=== PATIENT | male | born 1960 | race Caucasian/White ===

== ENCOUNTER 2017-10-20 10:56 | Day surgery (SDC) | payer OTHER ==
[~2017-10-20] VITALS: Ht 177.8 cm; Wt 98.2 kg
--- NOTE | ~2017-10-20 | DS ---
PATIENT:RADHA PICHARDO :56 MEDICAL RECORD: [id number] DISCHARGE SUMMARY ADMISSION DATE: 10/20/17 DISCHARGE DATE: 10/21/17 PRINCIPAL DIAGNOSES: Ruptured acute appendicitis with localized peritonitis and abscess. SECONDARY DIAGNOSIS: Urinary retention. PROCEDURE: Laparoscopic appendectomy. HOSPITAL COURSE: The patient was admitted through the Emergency Room. He underwent the above operative procedure. Postoperatively, he did well except for some urinary retention, which resolved with Flomax. He is being dismissed home on Levaquin, Flagyl, [place] as well as Colace. I have told him that due to the possibility of tendon rupture, he should not exercise while taking the Levaquin. TRANSINT:[id number] Voice Confirmation ID: [id number] DOCUMENT ID: [id number] JORDYN IZQUIERDO MD at 1227 CC: [id number] DICTATION DATE: 10/21/171808 REGIONAL MEDICAL DIRECTOR: 10/22/17 1230 [facility] 10/21/17 [id number] [place] [address]
--- NOTE | ~2017-10-20 | OP ---
PATIENT NAME: RADHA PICHARDO MEDICAL RECORD: [id number] :56 LOCATION:. ADMISSION DATE: SURGEON: JORDYN IZQUIERDO MD DATE OF OPERATION: 10/20/2017 PREOPERATIVE DIAGNOSIS: Acute appendicitis with localized peritonitis. POSTOPERATIVE DIAGNOSIS: Acute appendicitis with localized peritonitis with rupture and abscess. PROCEDURE: Laparoscopic appendectomy. SURGEON: Jordyn Izquierdo MD BUSINESS PROCESS ANALYST: None. BLOOD LOSS: Minimal. ANESTHESIA: General. COMPLICATIONS: None. The risks, possible complications, and alternatives to procedure were explained to the patient. He elects to proceed. The discussion specifically included, but was not limited to, bleeding requiring emergency reoperation, infection, intestinal injury and the possibility that the appendix would not be acutely inflamed. OPERATIVE COURSE: The patient was conveyed to the operating room electively on 10/20/2017. General anesthesia was induced by the anesthesia staff. The abdomen was sterilely prepped and draped. A small skin gaby was accomplished in the left upper quadrant. A Veress needle was inserted through the skin gaby into the peritoneal cavity. CO2 insufflation was begun. Once a sufficient pneumoperitoneum had been achieved, a 5-mm trocar was inserted through an incision in the left lower quadrant. Under direct internal vision, utilizing a television camera, a 12-mm trocar was inserted through an incision at the umbilicus. Another 5-mm trocar was inserted through an incision in the right groin. During insertion of the Veress needle and all trocars, there appeared to have been no injury to the bowels, any intraperitoneal or retroperitoneal structures. Abdominal survey was undertaken. The appendix was acutely inflamed. There was pus around the appendix. I aspirated the pus. I began to bluntly dissect out the appendix. I incised along the right white line of Toldt to get more mobility to the cecum. I was able to mobilize the appendix, which was ruptured. A window was created in the mesoappendix. I stapled across the tip of the cecum with an Endo-KARLI type staple utilizing a blue load. I then took down the mesoappendix utilizing the laparoscopic EnSeal device. The appendix was removed in pieces and placed in an endoscopic retrieval bag. I irrigated and aspirated locally in the right lower quadrant. There was no bleeding even at low pressure of 8. The Aki-Yfn suture closure device and 0 Vicryl sutures were used to close the umbilical fascial defect. All the trocars were removed and the abdomen desufflated. OPERATIVE REPORT [id number] RADHA PICHARDO The skin incision at the umbilicus was closed with interrupted 4-0 Vicryl Rapide sutures. The other 2 skin incisions were closed with interrupted intracuticular 3-0 Vicryls. Benzoin and Steri-Strips were applied. The patient was then extubated and conveyed to post-anesthesia care unit where he was in stable condition. Due to the ruptured nature of the appendix and the abscess around the appendix, I am going to place the patient on intravenous antibiotics. TRANSINT:[id number] Voice Confirmation ID: [id number] DOCUMENT ID: [id number] JORDYN IZQUIERDO MD at 1227 CC: JHONATAN SALMON MD and LLUVIA [place] MD [id number] DICTATION DATE: 10/20/17 184 BENCH MOLDER: 10/21/17 0746 [facility] 10/21/17 [facility] [address] [place] [address]
--- NOTE | ~2017-10-20 | HP ---
PATIENT: RADHA PICHARDO MEDICAL RECORD: [id number] ACCOUNT: [id number] LOCATION:[place] : 56 ADMISSION DATE: 10/20/17 HISTORY AND PHYSICAL EXAMINATION CHIEF COMPLAINT: Pain. HISTORY OF PRESENT ILLNESS: The patient has been having abdominal pain for a couple of days. He has been febrile. He went to the walk-in clinic. The patient has had a history of multiple myeloma. He is currently being treated for amyloidosis. Palpation aggravates. Nothing alleviates. His pain is 4/10. It is a sharp pain. The patient does have peritonitis to percussion. Some of the physical examination findings are listed under this history of present illness. PAST MEDICAL AND SURGICAL HISTORY: As described above, also hypertension, also hypothyroidism, on replacement therapy, gastroesophageal reflux. ALLERGIES: ROCEPHIN. HOME MEDICINES: Magnesium, prednisone, levothyroxine, acyclovir, Protonix as well as lisinopril. REVIEW OF SYSTEMS: No night sweats. No weight loss. No anorexia. No hemoptysis. Positive for fever. No change in bowel habits. No dark or tarry stools. SOCIAL HISTORY: He is a smoker. LABORATORY DATA: Reviewed. PHYSICAL EXAMINATION: GENERAL: The patient does not appear acutely ill. He does not appear chronically ill. VITAL SIGNS: Reviewed. EARS: External ears appear normal. EYES: Extraocular movements are intact. NECK: Trachea is midline. CHEST: No intercostal retractions. PULMONARY: Nonlabored, no stridor. ABDOMEN: Right lower quadrant tenderness with guarding. There is a Rovsing sign. No Ross sign. There is peritonitis to percussion. EXTREMITIES: No peripheral cyanosis. INTEGUMENT: No rash, no ulcerations. PSYCHIATRIC: Normal affect. NEUROLOGIC: Nonfocal, no lethargy. The patient answers questions appropriately, moves all extremities well. BACK: No thoracic kyphosis. LABORATORY DATA AND DIAGNOSTIC STUDIES: White count is 13.9 with a left shift. I have personally reviewed the CT report. IMPRESSION: Acute appendicitis with localized peritonitis. HISTORY AND PHYSICAL [id number] RADHA PICHARDO PLAN: Laparoscopic appendectomy, possible open procedure. The risks, possible complications, and alternatives to procedure were explained to the patient. He elects to proceed. The discussion specifically included, but was not limited to, bleeding requiring emergency reoperation, infection, intestinal injury as well as the possibility that the appendix would be normal and in that event, I would still remove the normal appendix in order to avoid diagnostic confusion in the future should the patient have a recurrence or persistence of abdominal pain. TRANSINT:[id number] Voice Confirmation ID: [id number] DOCUMENT ID: [id number] JORDYN IZQUIERDO MD at 1227 CC: LLUVIA [place] MD [id number] DICTATION DATE: 10/20/17 1616 HEEL SANDER RUBBER: 10/20/[address] [facility] 10/21/17 [id number] [place] [address]
[~2017-10-20 10:56] MED LIST: CELLCEPT500 MG PO; DRISDOL50000 UNIT PO; FUROSEMIDE20 MG PO; KEFLEX500 MG PO; LISINOPRIL10 MG PO; POTASSIUM PO; PREDNISONE20 MG PO; SYNTHROID150 MCG PO; VITAMIN B-12 PO; ZYLOPRIM100 MG PO
[2017-10-20 11:32] LABS: BASOPHILS 0 % (0-2); EOSINOPHILS 0 % (0-7); HEMOGLOBIN 12.4 g/dL (13.5-17.5); IMMATURE GRANULOCYTES 0.3 % (0-5); LYMPHOCYTES 4.6 % (15-50); MCH 32.4 pg (26.0-34.0); MCHC 33.5 g/dL (31.0-37.0); MCV 96.6 fL (80.0-100.0); MONOCYTES 11.2 % (2-11); NEUTROPHILS 83.9 % (40-80); RBC 3.83 10x6/uL (4.20-6.10); RDW 16.4 % (11.5-14.5); WBC 15.1 10x3/uL (4.8-10.8)
[2017-10-20 11:33] LABS: PLATELET COUNT 145 10x3/uL (130-400)
[2017-10-20 11:37] LABS: APPEARANCE CLEAR (CLEAR); BILIRUBIN NEGATIVE (NEGATIVE); COLOR YELLOW (YELLOW); GLUCOSE NEGATIVE (NEGATIVE); KETONE NEGATIVE (NEGATIVE); NITRITE NEGATIVE (NEGATIVE); PROTEIN 1+ mg/dL (NEGATIVE); SPECIFIC GRAVITY 1.015 (1.005-1.020); UROBILINOGEN NORMAL (NORMAL)
[2017-10-20 11:48] LABS: ANION GAP 15.8 mmol/L (8-16); BILIRUBIN - TOTAL 1.46 mg/dL (0.2-1.3); CALCIUM 9.1 mg/dL (8.5-10.1); CARBON DIOXIDE 23.3 mmol/L (21.0-32.0); CREATININE - SERUM 2.3 mg/dL (0.6-1.3); POTASSIUM - SERUM 4.1 mmol/L (3.5-5.1); PROTEIN - SERUM 7.8 g/dL (6.4-8.2)
[2017-10-20 19:43] VITALS: BP 143/79
[2017-10-21] MEDS ORDERED: MAG-OXIDE400 MG PO (00:58)
[2017-10-21] MEDS ORDERED: ZOVIRAX200 MG PO (01:00)
[2017-10-21] MEDS ORDERED: PROTONIX40 MG PO (01:01)
[2017-10-21 01:03] VITALS: BP 143/79; Ht 177.8 cm; Wt 98.2 kg
[2017-10-21 04:33] VITALS: BP 127/71
[2017-10-21 06:20] LABS: BASOPHILS 0 % (0-2); EOSINOPHILS 0 % (0-7); HEMOGLOBIN 10.3 g/dL (13.5-17.5); IMMATURE GRANULOCYTES 0.2 % (0-5); MCH 31.8 pg (26.0-34.0); MCHC 33.2 g/dL (31.0-37.0); MCV 95.7 fL (80.0-100.0); MEAN PLATELET VOLUME 10.5 fL (7.4-10.4); MONOCYTES 7.2 % (2-11); NEUTROPHILS 88.6 % (40-80); PLATELET COUNT 120 10x3/uL (130-400); RBC 3.24 10x6/uL (4.20-6.10); RDW 16.4 % (11.5-14.5)
[2017-10-21 06:21] LABS: WBC 8.1 10x3/uL (4.8-10.8)
[2017-10-21 06:44] LABS: ALBUMIN 2.3 g/dL (3.4-5.0); ANION GAP 17.3 mmol/L (8-16); BILIRUBIN - TOTAL 0.8 mg/dL (0.2-1.3); CARBON DIOXIDE 19.3 mmol/L (21.0-32.0); CREATININE - SERUM 2.4 mg/dL (0.6-1.3); MAGNESIUM - SERUM 1.5 mg/dL (1.8-2.4); PHOSPHOROUS 3.6 mg/dL (2.5-4.9); POTASSIUM - SERUM 4.6 mmol/L (3.5-5.1); PROTEIN - SERUM 6.3 g/dL (6.4-8.2)
[2017-10-21 08:48] VITALS: BP 109/67
[2017-10-21 11:51] VITALS: BP 123/81
[2017-10-21 16:57] VITALS: BP 142/78
== END 2017-10-21 19:47 | disposition home or self-care (01) ==
LOC: OBSVTIME → D.ER 10:56 → D.EDHOLD 16:24 → D.MS 16:24 → D.ER 16:24 → OBSVTIME 16:24 → D.MS 17:35 → D.EDHOLD 17:35 → D.MS 10-21 19:47 → D.ER 10-21 19:47 → D.MS 10-21 19:47
PROVIDERS: Family Medicine; Surgery
DX: K35.3 Acute appendicitis with localized peritonitis (principal); I10 Essential (primary) hypertension; E03.9 Hypothyroidism, unspecified; M06.9 Rheumatoid arthritis, unspecified; Z01.812 Encounter for preprocedural laboratory examination